=== PATIENT | female | born 1975 | race Caucasian/White ===

== ENCOUNTER 2017-03-08 07:48 | Emergency (ER) | payer OTHER ==
--- NOTE | ~2017-03-08 | CT98 ---
[facility] A Service of [facility] / [facility] RADIOLOGY TEXT RESULTS PATIENT: EVE MICHAELS LOCATION: SED : 79 UNIT #: [id number] AGE: [address]: Maurice León MD SEX: F ORDER DR: [id number] [address] [address] [id number] E MR#: [id number] #: [id number] NAME: EVE MICHAELS. : 1975 SEX: F STUDY DATE/TIME: 03/08/2017 8:20 UNIT: SED ROOM: STUDY DESCRIPTION: CT Lumbar Spine Wo Cont Attending Physician: Maurice León M.D. Ordering Physician: Maurice León M.D. Primary Care Physician: Ely Zayas M.D. MEDICAL IMAGING REPORT This report is preliminary unless electronic signature is present. EXAM CT lumbar spine HISTORY Left lower back pain radiating to left leg for 7 months. No known injury. History of sciatica. TECHNIQUE This CT exam was performed with one or more of the following radiation dose reduction techniques: automatic exposure control, adjustment of mA and/or kV according to patient size, and iterative reconstruction. FINDINGS CT lumbar spine performed. Bone and soft tissue windows reviewed. Sagittal coronal oblique reconstructions were performed. No prior dedicated CTs of the lumbar spine for comparison. Visualized portions of the adrenal glands, kidneys, vascular structures, retroperitoneum, uterus adnexal regions of alimentary canal unremarkable. The paraspinal soft tissues unremarkable. 5 lumbar-type vertebral segments. Vertebral body heights normal. Mild generalized narrowing of intervertebral disc space heights with moderate to marked narrowing of the L4 - L5 intervertebral disc space. Straightening of the normal cervical lordosis. Facet joint relationships normal. T11 hyphen T12, T12 hyphen L1, L1-L2: No significant disc bulge or herniation. Spinal canal diameter normal. Neural foramina normal. L2-L3: Mild posterior concentric disc bulge. No significant spinal canal narrowing. Neural foramina patent without evidence of exiting nerve impingement. L3-L4: Mild posterior concentric disc bulge. Mild mass effect on thecal [facility] A Service of [facility] & [facility] RADIOLOGY TEXT RESULTS PATIENT: EVE MICHAELS LOCATION: SED : 79 UNIT #: [id number] AGE: [address]: Maurice León MD SEX: F ORDER DR: meliza. Minimal central spinal canal narrowing. The neural foramina are patent without evidence of exiting nerve impingement. Mild facet hypertrophic change. L4-L5: Large posterior central and left paracentral disc protrusion. Disc material extends cephalad along the posterior left paracentral aspect of the L4 vertebral body for a distance of about 1.3 cm. It extends to the level of the L4 lateral recess. There is marked mass effect on the left L4 lateral recess. There is marked mass effect on the thecal sac. Mass effect on the descending left L4 nerve root in the lateral recess is likely. There is mild narrowing of the left neural foramen. There is probably intrathecal descending nerve root crowding. There is moderate central spinal canal narrowing. Findings could best be further evaluated with MRI if the patient is a candidate. L5-S1: No significant disc bulge. Spinal canal diameter within normal limits. Mild facet hypertrophic change. No significant foraminal narrowing. IMPRESSION 1. Please see complete dictation above for full details. The most pronounced finding is a large posterior central and left paracentral disc protrusion at L4 - L5. There is resulting moderate to marked central and left paracentral spinal canal narrowing. Intrathecal descending nerve root crowding is felt to be present. The disc protrusion extends cephalad along the central and left paracentral L4 vertebral body exerting marked mass effect on the left lateral recess. Mass effect on descending left L4 nerve is almost certainly present. I do not see clear indication of free disc fragment but this finding is best further characterized overall with MRI if the patient is a candidate. If the patient is not a candidate for MRI, CT myelography might be considered. 2. No other areas of significant spinal canal narrowing. See level by level details in body of report above. Dictated by... Ganesh Scott M.D. THIS IS AN ELECTRONICALLY VERIFIED REPORT Ganesh Scott M.D. at 03/09/2017 6:35 PM HIPOLITO/aliyah TD: 03/08/2017 11:56 JOB #: [id number] MEDICAL IMAGING REPORT [facility]. [facility] A Service of [facility] & [facility] RADIOLOGY TEXT RESULTS PATIENT: EVE MICHAELS LOCATION: SED : 79 UNIT #: [id number] AGE: [address]: Maurice León MD SEX: F ORDER DR: Page 1 of 1
[~2017-03-08 07:48] MED LIST: ALBUTEROL17 G1 IH; BAYER ASPIRIN325 M1 PO; BENZONATATE PO; FLEXERIL10 MG PO; LORTAB 5/500 TA1 TA1 PO; METFORMIN PO; PREDNISONE PO; PREDNISONE10 MG PO; SIMVASTATIN5 MG; TETRACYCLINE PO; VOLTAREN75 MG PO; ZITHROMAX PO; ZOFRAN PO
== END 2017-03-08 10:24 | disposition home or self-care (01) ==
LOC: SED 07:48
DX: M51.26 Other intervertebral disc displacement, lumbar region (principal); E11.40 Type 2 diabetes mellitus with diabetic neuropathy, unspecified; K21.9 Gastro-esophageal reflux disease without esophagitis; Z90.49 Acquired absence of other specified parts of digestive tract; F17.210 Nicotine dependence, cigarettes, uncomplicated; Z79.82 Long term (current) use of aspirin; Z88.2 Allergy status to sulfonamides; Z88.5 Allergy status to narcotic agent; Z91.040 Latex allergy status; Z88.8 Allergy status to other drugs, medicaments and biological substances
CPT/HCPCS: 72131; 96372; 99283; J1885